=== PATIENT | male | born 1980 | race Caucasian/White ===

== ENCOUNTER 2019-06-07 12:40 | Day surgery (SDC) | payer OTHER ==
[2019-06-07] VITALS (14 sets, daily range): BP systolic 113–133; BP diastolic 62–85; PULSE 74–82; RESP 7–23; Ht 162.6 cm; Wt 88.2 kg
[~2019-06-07] VITALS: Ht 162.6 cm; Wt 88.2 kg
[~2019-06-07 12:40] MED LIST: CEFAZOLIN 2 GM/50 ML (PMX) 50 ML IVPB ONE; ESCI10TA48 ORAL; SOD CHLORIDE 0.9% 1,000 ML IV ONE
--- NOTE | 2019-06-07 13:24 | PREAC ---
Date/Time of Note Date/Time of Note DATE: 06/07/19 TIME: 13:22 Anesthesia Eval and Record Evaluation Time Pre-Procedure Interview DATE: 06/07/19 TIME: 13:22 Age 38 Sex male NPO: 8 hrs Preoperative diagnosis ventral hernia Planned procedure laparoscopic ventral hernia repair Past Medical History Past Medical History: Includes Cardio: Dyslipidemia Psych: Depression, Anxiety Surgery & Anesthesia Issues No known issue Meds Anticoagulation: No Beta Burt within 24 hr: No Reason Beta Burt not given: Pt. not on B-Burt Reported Medications Escitalopram Oxalate* (Escitalopram Oxalate*) 10 Mg Tablet, 5 MG ORAL DAILY 06/07/19 Current Medications Sodium Chloride 1,000 ml @ 75 mls/hr [id number] ONCE IV Last administered on 06/07/19at 13:02; Admin Dose 75 MLS/HR; Start 06/07/19 at 12:30; Stop 06/08/19 at 01:49 Meds reviewed: Yes Allergies Coded Allergies: No Known Allergy (Unverified , 06/07/19) Allergies Reviewed: Yes Labs/Studies Labs Reviewed: Reviewed by anesthesiologist Result Diagram: 06/07/19 1300 Laboratory Tests 06/07/19 13:00 test: N/A Pre-procedure Exam Airway: Adequate mouth opening, Adequate thyromental dist Mallampati: Mallampati II Teeth: Normal Lung: Normal Heart: Normal ASA Physical Status ASA physical status: 1 Emergency: None Planned Anesthetic General/MAC: ETT Planned Pain Management Parenteral pain med Pre-operative Attestations Prior to commencing anesthesia and surgery, the patient was re-evaluated, there was verification of: *The patient's identity *The results of appropriate recent lab work and preoperative vital signs *The above evaluation not changing prior to induction *Anesthetic plan, risk benefits, alternative and complications discussed with patient/family; questions answered; patient/family understands, accepts and wishes to proceed. SHIVANI TALBERT Jun 07, 2019 13:24
[2019-06-07] MEDS ORDERED: PROPOFOL 20 ML ONE (13:28)
[2019-06-07] MEDS ORDERED: ROCURONIUM 50 MG INJ ONE (13:30)
[2019-06-07] MEDS ORDERED: LIDOCAINE 2% (SDV) 5 ML INJ ONE (13:30)
[2019-06-07] MEDS ORDERED: BUPIVACAINE 0.25% (MPF) 30 ML INJ ONE (14:10)
[2019-06-07] MEDS ORDERED: DEXAMETHASONE 4 MG/ML 5 ML INJ ONE (14:24)
[2019-06-07] MEDS ORDERED: ONDANSETRON 4 MG INJ ONE (14:25)
[2019-06-07] MEDS ORDERED: SUGAMMADEX SODIUM 200 MG/2 ML VIAL IV ONE (14:26)
--- NOTE | 2019-06-07 14:29 | OPR ---
Date/Time of Note Date/Time of Note DATE: 06/07/19 TIME: 14:27 Operative Report Procedure Date: Jun 07, 2019 Preoperative Diagnosis incarcerated ventral hernia Postoperative Diagnosis same Operation/Procedure Performed 1. laparoscopic incarcerated ventral hernia repair 2. implantation of 15 x 15 cm polypropylene mesh 3. therapeutic injection of subcutaneous local anesthesia Surgeon see signature line Daycare Director none Anesthesia Type: general Estimated Blood Loss: 0 - 10 ml's Transfusion none Specimen none Grafts/Implants none Complications none Pt Condition Post Procedure: stable Indications This is a 38-year-old male with an incarcerated ventral hernia. He request surgical repair due to the pain. Risks alternatives benefits and personal were discussed the patient. Patient expressed understanding and consents to the operation. Procedure Description Patient is taken to the OR and prepped and draped in usual sterile fashion. Surgical timeout was performed. IV antibiotics given. Left upper quadrant 5 mm incision was made with a 15 blade transversely. Using a 5 mm optical trocar optical entry is performed. Pneumoperitoneum was established. Left flank 12 mm optical trochars placed under direct visualization. Left lower quadrant 5 mm optical trochars placed under direct visualization. Upon initial inspection there is adhesions to the the anterior incarcerated hernia. Laparoscopic lysis of adhesions performed and the hernia was then manually reduced. Large tissue defect is identified. Using interrupted #1 Vicryl suture and laparoscopic techniques with Endo Close the defect was closed primarily with interrupted sutures. After closure of the hernia defect underlay mesh with polypropylene 15 x 15 cm mesh was secured in place with secure strap. At least 45 cm of coverage in all direction is ensured. Good hemostasis status. All ports were removed under direct visualization. Skin is closed using skin maelna. Therapeutic subcutaneous local anesthesia was injected at the incision site. Dry dressings were applied. Abhilash HENDRIX Jun 07, 2019 14:29
[2019-06-07] MEDS ORDERED: HYDROCODONE/APAP (5/325) TAB PO ONE (14:30)
[2019-06-07] MEDS ORDERED: HYDROmorphONE 1 MG/5 ML IV SYRINGE IV ONE (14:36)
--- NOTE | 2019-06-07 14:36 | PAC ---
Date/Time of Note Date/Time of Note DATE: 06/07/19 TIME: 14:35 Post-Anesthesia Notes Post-Anesthesia Note Last documented vital signs 128/78 89 17 99% sat 98.0 temp Activity: WNL Respiratory function: WNL Cardiovascular function: WNL Mental status: Baseline Pain reasonably controlled: Yes Hydration appropriate: Yes Nausea/Vomiting absent: Yes SHIVANI TALBERT Jun 07, 2019 14:36
[2019-06-07] MEDS ORDERED: MEPERIDINE 25 MG INJ ONE (14:41)
[2019-06-07] MEDS ORDERED: METOCLOPRAMIDE 10 MG INJ IV PRN (15:00)
[2019-06-07] MEDS ORDERED: FENTAnyl 50 MCG/ML VIAL IV PRN ×3 (15:00)
[2019-06-07] MEDS ORDERED: hydrALAzine 20 MG INJ IV PRN (15:00)
[2019-06-07] MEDS ORDERED: EPHEDrine 25 MG/5 ML SYG IV PRN (15:00)
[2019-06-07] MEDS ORDERED: KETOROLAC 30 MG INJ IV PRN (15:00)
[2019-06-07] MEDS ORDERED: ALBUTEROL 0.083% (NEB) 2.5 MG/3 ML AMP HHN PRN (15:00)
[2019-06-07] MEDS ORDERED: DIPHENHYDRAMINE 50 MG INJ IV PRN (15:00)
[2019-06-07] MEDS ORDERED: MIDAZOLAM 1 MG/ML 2 ML INJ IV PRN (15:00)
[2019-06-07] MEDS ORDERED: OXYCODONE/ACETAMINOPHEN (5/325) TAB PO PRN ×2 (15:00)
[2019-06-07] MEDS ORDERED: ONDANSETRON 4 MG INJ IV PRN (15:00)
[2019-06-07] MEDS ORDERED: MEPERIDINE 25 MG INJ IV PRN (15:00)
[2019-06-07] MEDS ORDERED: HYDROmorphONE 1 MG/5 ML IV SYRINGE IV PRN ×3 (15:00)
[2019-06-07] MEDS ORDERED: LABETALOL HCL 20MG INJ IV PRN (15:00)
== END 2019-06-07 17:44 | disposition home or self-care (01) ==
LOC: SDS 12:40
PROVIDERS: ATTEND Surgery
DX: K43.6 Other and unspecified ventral hernia with obstruction, without gangrene (principal)
CPT/HCPCS: 49653; 80053; 85025; 85610; 85730; J0690; J1100; J1170; J1885; J2175; J2405; J3010; Z7512; Z7610